=== PATIENT | female | born 1935 | race Caucasian/White ===

== ENCOUNTER 2016-08-20 13:04 | Inpatient (IN) | payer OTHER ==
--- NOTE | ~2016-08-20 | HP ---
History And Physical [facility] [address] [place]. [address] NAME: MENA PANDEY : 35 STATUS : ADM IN PAT#: [id number] AGE: 81 ADM/REG DATE : 08/20/16 MR#: [id number] REPORT SERV DATE: 08/20/16 DICTATED BY: STEPH PACK DATE: 08/20/16 REPORT STATUS : Draft TRANSCRIBED BY: MODL DATE: 08/20/16 DATE OF ADMISSION: 08/20/2016 HISTORY OF PRESENT ILLNESS: Ms Pandey is an 81-year-old female, who has a history of primary peritoneal carcinoma. She was diagnosed in November of 2013. The patient underwent IV chemotherapy with carboplatin. She was noted to have a recurrence in June 2016, in which she was symptomatic with abdominal distention and weight loss. She is now undergoing IV chemotherapy again with carboplatin. Her last dose was on 08/13/2016, when she received cycle 1B. The patient complains of increased abdominal distention, having difficulty ambulating, and is very uncomfortable, and is requiring an ultrasound-guided paracentesis, complains shortness of breath with ambulation. No nausea or vomiting, is having regular bowel movements. PAST MEDICAL HISTORY: Consistent with dementia. She has had a previous CVA. She also has high cholesterol, hypertension, arthritis, and hypothyroidism. PAST SURGICAL HISTORY: Previous hysterectomy and cholecystectomy. SOCIAL HISTORY: Negative for tobacco, alcohol, or illicit drug use. FAMILY HISTORY: Noncontributory. PHYSICAL EXAMINATION: GENERAL: She is alert, answers questions appropriately. No acute distress noted. LUNGS: Clear to auscultation bilaterally. HEART: Regular rate and rhythm. ABDOMEN: Soft, slightly distended. Nontender. EXTREMITIES: No swelling and pulses +2. ASSESSMENT/PLAN: In summary, this is an 81-year-old female with recurrent primary peritoneal carcinoma. She is currently receiving IV chemotherapy. She is now requiring an ultrasound- guided paracentesis for symptom relief of her abdominal ascites. The patient is unable to have the procedure done as an outpatient, given that she is on Plavix, and is unable to wait for the schedule of outpatient facility to do day ultrasound-guided paracentesis, given her extreme abdominal discomfort. LIDIA/BEAN Steph Pack NP / [id number] CC: History And Physical [address] [address] NAME: MENA PANDEY : 35 STATUS : ADM IN PAT#: [id number] AGE: 81 ADM/REG DATE : 08/20/16 MR#: [id number] REPORT SERV DATE: 08/20/16 DICTATED BY: STEPH PACK DATE: 08/20/16 REPORT STATUS : Draft TRANSCRIBED BY: MODL DATE: 08/20/16 Faviola Hu MD
[~2016-08-20 13:04] MED LIST: AGGRENOX PO; ARICEPT10 PO; B12250T PO; CEFT5 PO; CELEXA20 PO; CENTRUM TAB1 TAB PO; CLARIT10 PO; FISH-EPA1000 MG PO; FOLIC ACID 400MCG PO; FOLIC ACID PO; FOLIC ACID800 MCG PO; GGEXPUD PO; HALF81 PO; KONSYL100 % PO; MAGOX4 PO; MEG40 PO; MEGACEUDL PO; MIRALAXPKT PO; MOMUD PO; MULTI-VIT HP; MULTIVIT/MIN PO; NAMENXR28 PO; NAMZARIC PO; NORCO1 TA1 PO; PLAVIX PO; PROTONIX PO; REMERON30 MG PO; SENTAB PO; SINGULAIR1 PO; SYN.05 PO; VIT C/RHIPS/ PO; VITAMIN B-121000 MC1 PO; VITAMIN B-121000 MC1 SL; VITAMIN D3 PO; VITAMIN D400 UNI1 PO; VITC500 PO; ZOCOR40 PO; ZOFRANODT8
[2016-08-20 15:00] LABS: BASOPHILS 0.2 %; BASOPHILS ABSOLUTE 0.01 10/3/uL (0.0-0.16); EOSINOPHILS 2.3 %; EOSINOPHILS ABSOLUTE 0.14 10/3/uL (0.0-0.53); HEMOGLOBIN 9.7 g/dL (12.0-16.0); IMMATURE GRANULOCYTES 2.1 %; IMMATURE GRANULOCYTES ABSOLUTE 0.13 10/3/uL (0.0-0.11); LYMPHOCYTES 11.8 %; LYMPHOCYTES ABSOLUTE 0.73 10/3/uL (0.67-4.30); MEAN CORPUS HGB CONC 32.9 g/dL (32.0-36.0); MEAN CORPUSCULAR HEMOGLOB 30.8 pg (26.0-34.0); MEAN CORPUSCULAR VOLUME 93.7 fL (80-100); MEAN PLATELET VOLUME 9.4 fL (9.2-13.0); MONOCYTES 4.8 %; NEUTROPHILS 78.8 %; PLATELET COUNT 137 10/3/uL (150-400); RBC DISTRIBUTION WIDTH 15.2 % (12.0-16.0); RED CELL COUNT 3.15 10/6/uL (4.0-5.6); WHITE BLOOD CELLS 6.2 10/3/uL (4.5-10.5)
[2016-08-20 15:08] LABS: HEMATOCRIT 29.5 % (36.0-48.0); MANUAL DIFF NO %
[2016-08-20 15:13] LABS: INTERNATIONAL NORMAL RATI 1.2 UNITS (-); PARTIAL THROMBO TIME 32.1 SEC (22.5-37.2)
[2016-08-20 15:15] LABS: BUN (BLOOD UREA NITROGEN) 14 MG/DL (6-23); CALCIUM, SERUM 8.5 MG/DL (8.5-10.4); CHLORIDE, SERUM 108 MMOL/L (96-112); CO2 (CARBON DIOXIDE) 25 MMOL/L (24-34); GFR AFRICAN AMERICAN 45 ML/MIN (>=60); GFR NON AFRICAN AMERICAN 38 ML/MIN (>=60); GLUCOSE, SERUM 87 MG/DL (60-99); SGOT(AST) 13 U/L (5-40); SGPT(ALT) 7 U/L (5-65); SODIUM, SERUM 140 MMOL/L (135-148); TOTAL BILIRUBIN 0.3 MG/DL (0-1.2); TOTAL PROTEIN 5.9 G/DL (6.0-8.5)
[2016-08-20 15:16] LABS: A/G RATIO 0.5 (0.7-1.9); ALKALINE PHOSPHATASE 44 U/L (45-117); GLOBULIN 3.9 G/DL (2.5-4.1)
[2016-08-20] MEDS ORDERED: PLAVIX PO (19:34)
[2016-08-20] MEDS ORDERED: LEVOTHYROXIN50 MCG PO (19:34)
[2016-08-20] MEDS ORDERED: PROTONIX PO (19:34)
[2016-08-20] MEDS ORDERED: SINGULAIR1 PO (19:34)
[2016-08-20] MEDS ORDERED: ARICEPT10 PO (19:35)
[2016-08-20] MEDS ORDERED: ZOCOR40 PO (19:35)
[2016-08-20] MEDS ORDERED: REM15 PO (19:35)
[2016-08-20] MEDS ORDERED: MAGOX4 PO (19:35)
[2016-08-20] MEDS ORDERED: NAMENXR28 PO (19:35)
[2016-08-20] MEDS ORDERED: FOLIC ACID400 MC1 PO (19:36)
[2016-08-20] MEDS ORDERED: SENTAB PO (19:36)
[2016-08-20] MEDS ORDERED: MEG40 PO (19:36)
[2016-08-20] MEDS ORDERED: VITAMIN B-121000 MC1 SL (19:37)
[2016-08-20] MEDS ORDERED: FISH-EPA1000 MG PO (19:37)
[2016-08-20] MEDS ORDERED: VITC500 PO (19:37)
[2016-08-20] MEDS ORDERED: VITAMIN D3 PO (19:37)
[2016-08-20] MEDS ORDERED: ASAB PO (19:38)
[2016-08-20] MEDS ORDERED: MULTIVITAMI1 PO (19:38)
[2016-08-20] MEDS ORDERED: ZOFRANODT8 PO (19:39)
[2016-08-20] MEDS ORDERED: COMP10B PO (19:39)
[2016-08-20] MEDS ORDERED: SEROQUEL25 PO (19:40)
[2016-08-20] MEDS ORDERED: CHEMO THERAPY (19:41)
[2016-08-20] MEDS ORDERED: ACET500CAP PO (19:42)
== END 2016-08-21 11:24 | disposition home or self-care (01) | DRG 375 ==
LOC: 4EA 13:04
PROVIDERS: Obstetrics & Gynecology Gynecologic Oncology
DX: C48.2 Malignant neoplasm of peritoneum, unspecified (principal); R18.8 Other ascites
CPT/HCPCS: 71020; 74020; 76705; 80053; 85025; 85610; 85730